=== PATIENT | male | born 1995 | race Caucasian/White ===

== ENCOUNTER 2016-11-21 14:39 | Emergency (ER) | payer BC ==
[~2016-11-21] VITALS: Ht 170.2 cm; Wt 65.0 kg
[2016-11-21 14:43] VITALS: TEMP 98.5
[2016-11-21] MEDS ORDERED: DDAVP (14:47)
[2016-11-21] MEDS ORDERED: AMOXICILLIN 8751 TAB PO (15:04)
[2016-11-21 15:54] LABS: PH 7 (5-8); SQUAMOUS EPITHELIAL None Seen /hpf; URINE APPEARANCE Clear; URINE BACTERIA None Seen /hpf; URINE BILIRUBIN Negative (NEGATIVE); URINE BLOOD Negative (NEGATIVE); URINE COLOR Straw; URINE GLUCOSE Negative (NEGATIVE); URINE KETONE Negative (NEGATIVE); URINE RBC 0-2 /hpf; URINE UROBILINOGEN Negative (NEGATIVE); URINE WBC 0-2 /hpf
[2016-11-21 15:55] LABS: BASO % 0.4 % (0.0-2.0); EOS # 0.1 (0.0-0.7); GRAN # 4.9 (1.4-6.5); GRAN % 67.9 % (42.2-75.2); HEMATOCRIT 40.3 % (36.0-47.0); HEMOGLOBIN 13.6 g/dl (12.5-16.1); LYMPH # 1.6 (1.2-3.4); LYMPH % 21.9 % (20.0-51.0); MEAN CELL VOLUME 87 fl (80.0-95.0); MEAN CORPUSCULAR HEMOGLOBIN 29 pg (26.0-32.0); MEAN CORPUSCULAR HGB CONC 34 g/dl (33.0-37.0); MEAN PLATELET VOLUME 11.5 fl (7.4-10.4); MONO # 0.6 (0.1-0.6); MONO % 8.4 % (1.7-9.3); PLATELET COUNT 210 K/mm3 (130-400); RED BLOOD COUNT 4.63 M/mm3 (4.20-5.60); REDCELL DISTRIBUTION WIDTH-CV 12.9 % (11.5-14.5); WHITE BLOOD COUNT 7.3 K/mm3 (4.8-10.8)
[2016-11-21 16:02] LABS: ADJUSTED CALCIUM 8.6 mg/dL (8.4-10.2); ALBUMIN 4.5 gm/dL (3.5-5.0); BILIRUBIN,TOTAL 0.7 mg/dL (0.0-1.0); CREATININE, serum 0.81 mg/dL (0.66-1.25); POTASSIUM 3.5 mmol/L (3.4-5.0); TOTAL PROTEIN 7.2 gm/dL (6.4-8.2)
[2016-11-21] MEDS ORDERED: CARAFATE 1GM1 G PO (16:41)
[2016-11-21 17:25] VITALS: BP 119/70; PULSE 64
== END 2016-11-21 17:25 | disposition home or self-care (01) ==
LOC: COL.ER 14:39
PROVIDERS: Physician Assistant
DX: R10.12 Left upper quadrant pain (principal); R19.7 Diarrhea, unspecified
CPT/HCPCS: C9113; J2270; J2405; J7030; Q9967

== ENCOUNTER → 2016-11-23 | Outpatient (CLI) | payer BC ==
[~2016-11-23] MED LIST: AMOXICILLIN 8751 TAB PO; CARAFATE 1GM1 G PO; DDAVP
== END ==
LOC: COL.LAB 16:47
DX: Z01.89 Encounter for other specified special examinations (principal)

== ENCOUNTER → 2016-12-07 | Outpatient (CLI) | payer BC | LOC: COL.RAD 07:00 | DX: N43.3 Hydrocele, unspecified (principal) ==